=== PATIENT | female | born 1965 | race Caucasian/White ===

== ENCOUNTER 2020-06-27 09:33 | Observation (INO) | payer OTHER ==
[~2020-06-27] VITALS: Ht 157.5 cm; Wt 102.5 kg
[2020-06-27 09:36] VITALS: BP 174/93
[2020-06-27] MEDS ORDERED: NORVASC 2.5 MG2.5 M1 PO (09:49)
[2020-06-27] MEDS ORDERED: TOPROL XL50 MG PO (09:50)
[2020-06-27] MEDS ORDERED: DULERA 100 MCG/13 GM INH (09:50)
[2020-06-27] MEDS ORDERED: ZYRTEC10 M5 PO (09:51)
[2020-06-27] MEDS ORDERED: MONTELUKAST SODI4 M1 PO (09:51)
[2020-06-27] MEDS ORDERED: PROAIR HFA8.5 GM INH (09:51)
[2020-06-27] MEDS ORDERED: OMEPRAZOLE 20 M20 M1 PO (09:52)
[2020-06-27] MEDS ORDERED: SUPER THERAVIT1 EACH PO (09:52)
[2020-06-27] MEDS ORDERED: PROBIOTIC1 EAC7 PO (09:53)
[2020-06-27 09:55] LABS: ABSOLUTE BASOPHILS 0.1 thou/uL (0.0-0.2); ABSOLUTE EOSINOPHILS 0.2 thou/uL (0.0-0.7); ABSOLUTE MONOCYTES 0.5 thou/uL (0.0-1.2); ABSOLUTE NEUTROPHILS 5.6 thou/uL (1.6-8.1); BASOPHILS 0.6 %; EOSINOPHILS 2.9 %; HEMOGLOBIN 13.3 gm/dL (12.0-15.0); MCH 29.3 pg (26.0-34.0); MCHC 33.3 g/dL (28.0-37.0); MCV 88.2 fL (80.0-100.0); MONOCYTES 6.3 %; MPV 8.2 fl. (7.2-11.1); NUCLEATED RBCS 0 /100WBC; PLATELET COUNT* 269 thou/uL (150-400); POLYS 66.2 %; RBC 4.53 mil/uL (4.20-5.00); RDW-CV 13.4 % (10.5-14.5); WBC 8.5 thou/uL (4.0-11.0)
[2020-06-27 10:06] LABS: CALCIUM 8.7 mg/dL (8.5-10.1); CREATININE 0.7 mg/dL (0.6-1.3); POTASSIUM 3.8 mmol/L (3.5-5.1)
[2020-06-27 10:17] LABS: ALBUMIN 3.6 g/dL (3.4-5.0); MAGNESIUM 1.7 mg/dL (1.8-2.4); TOTAL BILIRUBIN 0.3 mg/dL (<0.1-1.0); TOTAL PROTEIN 7.9 g/dL (6.4-8.2)
[2020-06-27 12:25] VITALS: BP 135/78
[2020-06-27 12:35] VITALS: BP 145/87
--- NOTE | 2020-06-27 14:44 | CON ---
[address] [address] CONSULTATION Name: STAPLESPARVIN Theodora Room: [address] Lyndsey Fuller#: [id number] Admission: 06/27/20 Attend Phys: Flory Anaya Discharge: Date of : 63 Report #: [id number] THIS REPORT FOR: //name// cc: Vilma Bautista MD, Mary Ann MD ~ DATE OF SERVICE: 06/27/2020 CARDIOLOGY CONSULTATION HISTORY OF PRESENT ILLNESS: The patient is a 54-year-old white female who I was asked to see in the hospital today after she complained of chest pain. The patient notes that about a year ago, she saw her primary care physician and she was noted to have a left bundle branch block. She was referred to Dr. Crespo at [facility]. She apparently had a stress test that showed no evidence of ischemia. Dr. Crespo recommend no further cardiac evaluation. She does not exercise on a regular basis. Over the past week, she has had a discomfort on the left side of her chest. It is worse when she takes deep breath. She denied any fever or cough. There is no associated shortness of breath, diaphoresis, nausea. She also noticed some tingling of her left arm. She denied any trauma to her arm. She has had no rash of her chest. She has had no bleeding. She denies exertional dyspnea, peripheral edema. She notes occasional flutter in her heart, but no syncope. PAST MEDICAL HISTORY: She has had a lymph node dissection in the past. She has a history of asthma, arthritis, hypertension. No diabetes, no hyperlipidemia. MEDICATIONS: Include Exforge, metoprolol, methimazole for hyperthyroidism, Naprosyn, she uses 2 inhalers. ALLERGIES: SHE HAS PREVIOUS INTOLERANCE TO PENICILLIN. FAMILY HISTORY: Her grandfather, diabetes in his 50s. SOCIAL HISTORY: She is . Her is actually the brother of head of the train control electronic technician here at [place]. No smoking. No alcohol abuse. She works as a dental doctor assistant. No illicit drug use. REVIEW OF SYSTEMS: No history of stroke, liver disease, kidney disease, cancer, chronic skin condition. No psychiatric illness. PHYSICAL EXAMINATION: GENERAL: Revealed a middle-aged female, who appeared in no distress. VITAL SIGNS: She had a blood pressure of 140/80, pulse is 90. She is afebrile. HEENT: She was anicteric. Conjunctivae are pink. [place] [address] CONSULTATION Name: PARVIN STAPLES Room: [address] MChellyRChelly#: [id number] Admission: 06/27/20 Attend Phys: Flory Anaya Discharge: Date of : 63 Report #: [id number] NECK: Veins nondistended. No carotid bruits. CHEST: Clear to auscultation. CARDIOVASCULAR: Regular rate and rhythm. No rub or murmur. ABDOMEN: Soft. EXTREMITIES: Had no edema, no Homans sign. Posterior tibial pulse 2+ bilaterally. SKIN: Cool and dry. NEUROLOGIC: Nonfocal. RADIOLOGICAL DATA: Her ECG on admission showed a sinus rhythm with a left anterior fascicular block and a right bundle branch block. Her workup in the Emergency Room, she had a portable chest x-ray that showed normal heart size and clear lung menard. LABORATORY DATA: Sodium 143, creatinine 0.7, glucose 98. Liver function studies were normal. Troponins all 0.06. D-dimer 0.24. White blood cell count 8.5, hemoglobin 13.3. COVID antigen stat test was negative. IMPRESSION AND RECOMMENDATIONS: 1. Chest pain. Atypical for angina. Minimal risk factors. Suspect noncardiac. 2. Abnormal ECG. Recommend echocardiogram. 3. Arthritis. 4. Hypertension. The patient is on a beta ronald, calcium ronald and ARB. 5. History of hyperthyroidism. 6. Episode of PSVT noted on the monitor. I would continue beta-ronald. <ELECTRONICALLY SIGNED> By: Arash Nunes MD, FACC 06/27/20 1444 1314 1414Davicory Nunes MD, FACC /nt
--- NOTE | 2020-06-27 16:09 | 2DMMODE ---
[place] [address] 2 D/M-MODE ECHOCARDIOGRAM Name: PARVIN STAPLES Theodora Room: [address] Lyndsey Fuller#: [id number] Admission: 06/27/20 Attend Phys: Dario Hameed Discharge: Date of : 63 Date of Service: 06/27/20 1609 Report #: [id number] THIS REPORT FOR: cc: Vilma Bautista MD,Vilma Nunes,Arash Stubbs MD [facility] ~ APPROVED REPORT Study performed: 06/27/2020 13:55:58 EXAM: Comprehensive 2D, Doppler, and color-flow Echocardiogram Patient Location: In-Patient Room #: [facility] Status: routine BSA: 2.02 HR: 80 bpm BP: 135/78 mmHg Rhythm: NSR Other Information Study Quality: Good Indications Chest Pain 2D Dimensions IVSd: 12.24 (7-11mm) LVOT Diam: 19.24 (18-24mm) LVDd: 52.28 mm PWd: 10.60 (7-11mm) Ascending Ao: 32.27 (22-36mm) LVDs: 31.30 (25-40mm) Aortic Root: 32.73 mm Volumes Left Atrial Volume (Systole) LA ESV Index: 30.80 mL/m2 Aortic Valve AoV Peak Luis.: 1.88 m/s AO Peak Gr.: 14.17 mmHg LVOT Max P.05 mmHg AO Mean Gr.: 8.07 mmHg LVOT Mean P.59 mmHg LVOT Max V: 0.87 m/s AO V2 VTI: 36.47 cm LVOT Mean V: 0.59 m/s MCKAYLA (VTI): 1.51 cm2 LVOT V1 VTI: 18.97 [place] [address] 2 D/M-MODE ECHOCARDIOGRAM Name: PARVIN STAPLES Room: [address] Lyndsey Fuller#: [id number] Admission: 06/27/20 Attend Phys: Dario Hameed Discharge: Date of : 63 Date of Service: 06/27/20 1609 Report #: [id number] Mitral Valve E/A Ratio: 1.04 MV Decel. Time: 208.32 ms MV E Max Luis.: 1.05 m/s MV PHT: 60.41 ms MVA (PHT): 3.64 cm2 TDI E/Lateral E': 8.75 E/Medial E': 13.13 Medial E' Luis.: 0.08 m/s Lateral E' Luis.: 0.12 m/s Pulmonary Valve PV Peak Luis.: 1.05 m/s PV Peak Gr.: 4.42 mmHg Tricuspid Valve RAP Estimate: 5.00 mmHg TR Peak Gr.: 21.34 mmHg RVSP: 26.00 mmHg PA Pressure: 26.00 mmHg Left Ventricle The left ventricle is normal size. There is normal LV segmental wall motion. There is normal left ventricular wall thickness. Left ventricular systolic function is normal. The left ventricular ejection fraction is within the normal range. LVEF is 55-60%. The left ventricular diastolic function is normal. Right Ventricle The right ventricle is normal size. The right ventricular systolic function is normal. Atria Left atrium is mildly dilated. The right atrium size is normal. Aortic Valve The aortic valve is normal in structure. No aortic regurgitation is present. There is no aortic valvular stenosis. Mitral Valve The mitral valve is normal in structure. Trace mitral regurgitation. No evidence of mitral valve stenosis. Tricuspid Valve The tricuspid valve is normal in structure. Trace tricuspid regurgitation. estimated pa pressure 30 [place] [address] 2 D/M-MODE ECHOCARDIOGRAM Name: PARVIN STAPLES Room: [address]#: [id number] Admission: 06/27/20 Attend Phys: Dario Hameed Discharge: Date of : 63 Date of Service: 06/27/20 1609 Report #: [id number] Pulmonic Valve The pulmonary valve is normal in structure. There is no pulmonic valvular regurgitation. Great Vessels The aortic root is normal in size. IVC is normal in size and collapses >50% with inspiration. Pericardium There is no pericardial effusion. <Conclusion> LVEF is 55-60%. Left atrium is mildly dilated. Trace mitral regurgitation. <ELECTRONICALLY SIGNED> By: Arash Nunes MD, FACC 06/27/20 1609 160 08 Arash Nunes MD, FACC /INF
--- NOTE | 2020-06-27 17:14 | EKG ---
[place] [address] ELECTROCARDIOGRAM REPORT Name: PARVIN STAPLES Room: [address] M.R.#: [id number] Admission: 06/27/20 Attend Phys: Dario Hameed Discharge: Date of : 63 Date of Service: 06/27/20 0936 Report #: [id number] THIS REPORT FOR: //name// [facility] ED Test Date: 2020-06-27 Test Time: 09:36:44 Pat Name: PARVIN STAPLES Department: Room: [facility] Gender: F Freight Handler: : 1965 Requested By: Jaiden Cheney Order Number: [id number] MD: Thomas Carlson Measurements Intervals [place] Rate: 87 P: 37 NM: 138 QRS: -65 QRSD: 141 T: 43 QT: 382 QTc: 460 Interpretive Statements Sinus rhythm RBBB and LAFB Left ventricular hypertrophy Baseline wander in lead(s) II,aVF No previous ECG available for comparison Electronically Signed On 06-27-2020 17:14:29 [employer]UCK [employer] by Thomas Carlson [email or web address] <ELECTRONICALLY SIGNED> By: Thomas Carlson MD, FACC 06/27/20 1714 0936 0936 Thomas Carlson MD, FAC /EPI
[2020-06-27 17:45] VITALS: BP 145/87
== END 2020-06-27 18:30 | disposition home or self-care (01) ==
LOC: M.ERS 09:33 → M.TBA-ER 11:02 → M.2W 12:35
PROVIDERS: Emergency Medicine Emergency Medical Services; ADMIT Internal Medicine; ATTEND Internal Medicine
DX: R07.89 Other chest pain (principal); I25.10 Atherosclerotic heart disease of native coronary artery without angina pectoris; I10 Essential (primary) hypertension; J45.909 Unspecified asthma, uncomplicated; E78.5 Hyperlipidemia, unspecified; I47.1 Supraventricular tachycardia; I51.7 Cardiomegaly; I45.2 Bifascicular block; Z79.899 Other long term (current) drug therapy; Z20.828 Contact with and (suspected) exposure to other viral communicable diseases